=== PATIENT | female | born 1970 | race African-American/Black ===

== ENCOUNTER 2016-08-02 13:24 | Inpatient (IN) | payer MEDICAID ==
[~2016-08-02] VITALS: Ht 167.6 cm; Wt 72.7 kg
[2016-08-02] MEDS ORDERED: LEVETIRACETAM 500MG PREMIX 100 ML IV ONE (13:45)
[2016-08-02 14:15] LABS: BASOPHILS % 0.6 % (0.0-2.0); HEMATOCRIT. 34.3 % (36.0-48.0); HEMOGLOBIN. 11.1 g/dL (12.0-16.0); LYMPHOCYTES % 8.9 % (20.0-50.0); MEAN CORPUSCULAR HEMOGLOBIN 29.5 pg (28.0-32.0); MEAN CORPUSCULAR HGB CONC 32.2 g/dL (31.0-37.0); MEAN CORPUSCULAR VOLUME 91.7 fL (81.0-99.0); MONOCYTES % 5.5 % (2.0-8.0); PLATELET 213 x1000/uL (130-400); RED BLOOD CELL COUNT 3.74 mill/uL (4.2-5.4); RED CELL DISTRIBUTION WIDTH 14.4 % (11.6-14.6); WHITE BLOOD COUNT 12.4 x1000/uL (4.5-11.0)
[2016-08-02 14:22] LABS: CHLORIDE 107 mEq/L (98-107); INDEX HEMOLYSI 1 (1-3); INDEX ICTERIC 1 (1-4); INDEX LIPEMIC 1 (1-3)
[2016-08-02 14:27] LABS: HCG SCREEN NEGATIVE
[2016-08-02 14:30] LABS: ALANINE AMINOTRANSFERASE 17 IU/L (13-61); ALBUMIN 3.6 g/dL (3.4-5.0); ANION GAP 14; CALCIUM 9.8 mg/dL (8.5-10.1); CARBON DIOXIDE 24 mEq/L (21-32); ETHANOL BLOOD < 10 mg/dL; UREA NITROGEN BLOOD 16 mg/dL (7-21); eGFR > 60 mL/min (>60)
[2016-08-02 20:00] VITALS: BP 122/86
[2016-08-02 20:39] VITALS: BP 122/86
[2016-08-02] MEDS ORDERED: LEVE1000 PO (20:39)
[2016-08-02] MEDS ORDERED: NA PHOS,M-B/NA PHOS,DI-BA ENEMA 118ML PR PRN (21:15)
[2016-08-02] MEDS ORDERED: DOCUSATE SODIUM 100MG CAPSULE PO PRN (21:15)
[2016-08-02] MEDS ORDERED: IPRATROPIUM/ALBUTEROL 0.5-3(2.5)MG/3ML NEB INH PRN (21:15)
[2016-08-02] MEDS ORDERED: DIPHENHYDRAMINE 50MG/ML VIAL IV PRN (21:15)
[2016-08-02] MEDS ORDERED: CLONIDINE 0.1MG TABLET PO PRN (21:15)
[2016-08-02] MEDS ORDERED: GUAIFENESIN 200MG/10ML SUGAR FREE UDC PO PRN (21:15)
[2016-08-02] MEDS ORDERED: ACETAMINOPHEN 650MG SUPP PR PRN (21:15)
[2016-08-02] MEDS ORDERED: DEXTROSE 50% WATER 50ML SYRINGE IV PRN (21:15)
[2016-08-02] MEDS ORDERED: HYDROCODONE/ACETAMINOPHEN 5/325MG TABLET PO PRN (21:15)
[2016-08-02] MEDS ORDERED: ACETAMINOPHEN 650MG/20.3ML UDC GT PRN (21:15)
[2016-08-02] MEDS ORDERED: MAGNESIUM/ALUMINUM HYDROXIDE/SIMETHICONE 30ML UDC PO PRN (21:15)
[2016-08-02] MEDS ORDERED: ONDANSETRON HCL 4MG/2ML VIAL IV PRN (21:15)
[2016-08-03] VITALS: BP 109/68
[2016-08-03 04:00] VITALS: BP 116/81
[2016-08-03] MEDS: SODIUM CHLORIDE 0.9% INJ 3ML FLUSH IVF SCH ×3 (05:22→22:08)
[2016-08-03 05:38] LABS: BASOPHILS % 0.4 % (0.0-2.0); HEMATOCRIT. 33.6 % (36.0-48.0); LYMPHOCYTES % 17.5 % (20.0-50.0); MEAN CORPUSCULAR HEMOGLOBIN 29.5 pg (28.0-32.0); MEAN CORPUSCULAR HGB CONC 32.6 g/dL (31.0-37.0); MEAN CORPUSCULAR VOLUME 90.6 fL (81.0-99.0); MEAN PLATELET VOLUME 8.2 fl (7.4-10.4); MONOCYTES % 10.2 % (2.0-8.0); NEUTROPHILS % 71.9 % (40.0-76.0); PLATELET 217 x1000/uL (130-400); RED BLOOD CELL COUNT 3.71 mill/uL (4.2-5.4); RED CELL DISTRIBUTION WIDTH 14.4 % (11.6-14.6); WHITE BLOOD COUNT 9.4 x1000/uL (4.5-11.0)
[2016-08-03 06:05] LABS: ALANINE AMINOTRANSFERASE 17 IU/L (13-61); ALBUMIN 3.2 g/dL (3.4-5.0); ANION GAP 11; CALCIUM 9.5 mg/dL (8.5-10.1); CARBON DIOXIDE 27 mEq/L (21-32); CHLORIDE 107 mEq/L (98-107); INDEX HEMOLYSI 1 (1-3); INDEX ICTERIC 1 (1-4); INDEX LIPEMIC 1 (1-3); TRIGLYCERIDE 62 mg/dL (0-150); UREA NITROGEN BLOOD 11 mg/dL (7-21); eGFR > 60 mL/min (>60)
[2016-08-03 06:09] LABS: HDL CHOLESTEROL 51 mg/dL (40-59); LDL CHOLESTEROL 110 mg/dL (5-100)
[2016-08-03] MEDS: BLOOD SUGAR DIAGNOSTIC STRIP TEST SCH ×4 (06:16→21:00)
[2016-08-03] MEDS: INSULIN LISPRO 100 UNITS/ML SUBCUT SCH ×4 (06:16→21:00)
[2016-08-03 08:00] VITALS: BP 122/78
[2016-08-03] MEDS: ENOXAPARIN 40MG/0.4ML SYR SUBCUT SCH (09:43)
[2016-08-03 12:00] VITALS: BP 135/101
[2016-08-03] MEDS ORDERED: PNEUMOCOCCAL 23-VAL P-SAC VAC 0.5 ML IM ONE (12:00)
[2016-08-03] MEDS ORDERED: INFLUENZA VIRUS VACCINE 0.5ML SYR IM ONE (12:00)
[2016-08-03 15:47] LABS: CLARITY URINE CLEAR (CLEAR); COLOR URINE YELLOW (YELLOW); GLUCOSE URINE NEGATIVE (NEGATIVE); KETONES URINE NEGATIVE (NEGATIVE); LEUKOCYTE ESTERASE URINE 1+ (NEGATIVE); NITRITE URINE NEGATIVE (NEGATIVE); OCCULT BLOOD URINE NEGATIVE (NEGATIVE); PH URINE 6.5 (4.5-8.0); PROTEIN URINE NEGATIVE (NEGATIVE); SPECIFIC GRAVITY URINE 1.007 (1.005-1.030); UROBILINOGEN URINE 0.2 E.U./dL (0.2-1.0)
[2016-08-03 16:00] VITALS: BP 118/79
[2016-08-03 16:09] LABS: *AMPHETAMINES SCREEN URINE NEGATIVE (NEGATIVE); *BARBITURATES SCREEN URINE NEGATIVE (NEGATIVE); *BENZODIAZEPINES SCREEN URINE NEGATIVE (NEGATIVE); *COCAINE SCREEN URINE NEGATIVE (NEGATIVE); ECSTASY MDMA SCREEN URINE NEGATIVE (NEGATIVE); METHADONE URINE SCREEN NEGATIVE (NEGATIVE); OPIATES URINE SCREEN NEGATIVE (NEGATIVE); PHENCYCLIDINE URINE SCREEN NEGATIVE (NEGATIVE)
[2016-08-03 16:13] LABS: CANNABINOID URINE SCREEN PRESUMTIVE POSITIVE (NEGATIVE)
[2016-08-03 16:25] LABS: BACTERIA URINE TRACE; RBC URINE 0-2 /hpf (0-2); SQUAMOUS EPITHELIAL CELL URINE FEW /lpf (RARE/1+)
[2016-08-03 20:00] VITALS: BP 127/87
[2016-08-04] VITALS: BP 108/65
[2016-08-04 04:00] VITALS: BP 133/89
[2016-08-04] MEDS: BLOOD SUGAR DIAGNOSTIC STRIP TEST SCH ×4 (06:37→21:24)
[2016-08-04] MEDS: INSULIN LISPRO 100 UNITS/ML SUBCUT SCH ×4 (06:37→21:00)
[2016-08-04] MEDS: SODIUM CHLORIDE 0.9% INJ 3ML FLUSH IVF SCH ×3 (06:37→21:24)
[2016-08-04] MEDS: ACETAMINOPHEN 325MG TABLET PO PRN (06:43)
[2016-08-04 08:00] VITALS: BP 116/74
[2016-08-04] MEDS: ENOXAPARIN 40MG/0.4ML SYR SUBCUT SCH (09:12)
[2016-08-04] MEDS ORDERED: LEVOFLOXACIN 500MG TABLET PO NR (11:30)
[2016-08-04] MEDS ORDERED: LEVETIRACETAM 500MG TABLET PO SCH ×2 (11:30→12:45)
[2016-08-04 12:00] VITALS: BP 129/89
[2016-08-04] MEDS ORDERED: LEVO500T15 PO (12:37)
[2016-08-04 16:00] VITALS: BP 115/75
[2016-08-04 17:59] LABS: BASOPHILS % 0.6 % (0.0-2.0); EOSINOPHILS % 0.4 % (0.0-5.0); HEMATOCRIT. 35.2 % (36.0-48.0); HEMOGLOBIN. 11.6 g/dL (12.0-16.0); LYMPHOCYTES % 21.4 % (20.0-50.0); MEAN CORPUSCULAR HEMOGLOBIN 30.1 pg (28.0-32.0); MEAN CORPUSCULAR HGB CONC 33.1 g/dL (31.0-37.0); MEAN PLATELET VOLUME 8.6 fl (7.4-10.4); MONOCYTES % 12.4 % (2.0-8.0); NEUTROPHILS % 65.2 % (40.0-76.0); PLATELET 209 x1000/uL (130-400); RED BLOOD CELL COUNT 3.86 mill/uL (4.2-5.4); RED CELL DISTRIBUTION WIDTH 14.1 % (11.6-14.6); WHITE BLOOD COUNT 9.3 x1000/uL (4.5-11.0)
[2016-08-04 18:24] LABS: ANION GAP 14; CALCIUM 9.1 mg/dL (8.5-10.1); CARBON DIOXIDE 27 mEq/L (21-32); CHLORIDE 105 mEq/L (98-107); INDEX HEMOLYSI 1 (1-3); INDEX ICTERIC 1 (1-4); INDEX LIPEMIC 1 (1-3); UREA NITROGEN BLOOD 13 mg/dL (7-21); eGFR > 60 mL/min (>60)
[2016-08-04] MEDS ORDERED: LEVE1000 PO (19:49)
[2016-08-04 20:00] VITALS: BP 110/71
[2016-08-04] MEDS: LEVETIRACETAM 500MG TABLET PO SCH (21:24)
[2016-08-05] VITALS: BP 102/69
[2016-08-05 04:00] VITALS: BP 116/75
[2016-08-05] MEDS: INSULIN LISPRO 100 UNITS/ML SUBCUT SCH ×4 (05:58→21:00)
[2016-08-05] MEDS: SODIUM CHLORIDE 0.9% INJ 3ML FLUSH IVF SCH ×3 (05:58→21:43)
[2016-08-05] MEDS: BLOOD SUGAR DIAGNOSTIC STRIP TEST SCH ×5 (05:58→21:44)
[2016-08-05 08:00] VITALS: BP 109/67
[2016-08-05] MEDS: ENOXAPARIN 40MG/0.4ML SYR SUBCUT SCH (09:00)
[2016-08-05] MEDS: LEVETIRACETAM 500MG TABLET PO SCH ×2 (10:03→21:43)
[2016-08-05 12:00] VITALS: BP 107/64
[2016-08-05 16:00] VITALS: BP 99/73
[2016-08-05 20:00] VITALS: BP 106/62
[2016-08-06] VITALS (7 sets, daily range): BP systolic 99–139; BP diastolic 61–88
[2016-08-06] MEDS: SODIUM CHLORIDE 0.9% INJ 3ML FLUSH IVF SCH ×3 (06:18→21:04)
[2016-08-06] MEDS: BLOOD SUGAR DIAGNOSTIC STRIP TEST SCH ×4 (06:21→21:04)
[2016-08-06] MEDS: INSULIN LISPRO 100 UNITS/ML SUBCUT SCH ×4 (07:50→21:00)
[2016-08-06] MEDS: LEVETIRACETAM 500MG TABLET PO SCH ×2 (08:36→20:54)
[2016-08-06] MEDS: ENOXAPARIN 40MG/0.4ML SYR SUBCUT SCH (08:37)
[2016-08-07 05:11] VITALS: BP 107/74
[2016-08-07] MEDS: SODIUM CHLORIDE 0.9% INJ 3ML FLUSH IVF SCH ×3 (06:56→22:09)
[2016-08-07] MEDS: BLOOD SUGAR DIAGNOSTIC STRIP TEST SCH ×4 (06:57→21:00)
[2016-08-07] MEDS: INSULIN LISPRO 100 UNITS/ML SUBCUT SCH ×4 (07:50→21:00)
[2016-08-07 08:00] VITALS: BP 105/67
[2016-08-07] MEDS: LEVETIRACETAM 500MG TABLET PO SCH ×2 (09:17→22:08)
[2016-08-07] MEDS: ENOXAPARIN 40MG/0.4ML SYR SUBCUT SCH (09:17)
[2016-08-07 12:00] VITALS: BP 123/89
[2016-08-07 16:00] VITALS: BP 105/60
[2016-08-07 20:08] VITALS: BP 101/68
[2016-08-08 00:02] VITALS: BP 112/70
[2016-08-08 05:27] VITALS: BP 111/76
[2016-08-08] MEDS: BLOOD SUGAR DIAGNOSTIC STRIP TEST SCH ×4 (06:49→21:00)
[2016-08-08] MEDS: SODIUM CHLORIDE 0.9% INJ 3ML FLUSH IVF SCH ×3 (06:53→22:19)
[2016-08-08] MEDS: INSULIN LISPRO 100 UNITS/ML SUBCUT SCH ×4 (06:56→21:00)
[2016-08-08 08:00] VITALS: BP 106/74
[2016-08-08] MEDS: ENOXAPARIN 40MG/0.4ML SYR SUBCUT SCH (09:09)
[2016-08-08] MEDS: LEVETIRACETAM 500MG TABLET PO SCH ×2 (09:09→22:18)
[2016-08-08 12:00] VITALS: BP 102/44
[2016-08-08 16:00] VITALS: BP 94/56
[2016-08-08 20:00] VITALS: BP 121/82
[2016-08-08] MEDS: BACLOFEN 10MG TABLET PO SCH (22:19)
[2016-08-09] VITALS: BP 110/75
[2016-08-09 04:00] VITALS: BP 134/95
[2016-08-09] MEDS: BACLOFEN 10MG TABLET PO SCH ×3 (05:19→22:02)
[2016-08-09] MEDS: SODIUM CHLORIDE 0.9% INJ 3ML FLUSH IVF SCH ×3 (05:19→22:03)
[2016-08-09 08:00] VITALS: BP 107/79
[2016-08-09] MEDS: LEVETIRACETAM 500MG TABLET PO SCH ×2 (09:20→22:01)
[2016-08-09] MEDS: ENOXAPARIN 40MG/0.4ML SYR SUBCUT SCH (09:28)
[2016-08-09 12:00] VITALS: BP 99/68
[2016-08-09] MEDS: INSULIN LISPRO 100 UNITS/ML SUBCUT SCH ×3 (12:08→22:05)
[2016-08-09] MEDS: BLOOD SUGAR DIAGNOSTIC STRIP TEST SCH ×3 (12:08→22:05)
[2016-08-09 16:00] VITALS: BP 108/66
[2016-08-09 20:00] VITALS: BP 115/75
[2016-08-10 04:00] VITALS: BP 121/70
[2016-08-10] MEDS: BACLOFEN 10MG TABLET PO SCH ×2 (07:07→14:00)
[2016-08-10] MEDS: SODIUM CHLORIDE 0.9% INJ 3ML FLUSH IVF SCH ×2 (07:07→14:43)
[2016-08-10] MEDS: BLOOD SUGAR DIAGNOSTIC STRIP TEST SCH ×3 (07:10→17:20)
[2016-08-10] MEDS: INSULIN LISPRO 100 UNITS/ML SUBCUT SCH ×3 (07:50→17:50)
[2016-08-10 08:00] VITALS: BP 91/59
[2016-08-10] MEDS: ENOXAPARIN 40MG/0.4ML SYR SUBCUT SCH (09:34)
[2016-08-10] MEDS: LEVETIRACETAM 500MG TABLET PO SCH (09:34)
[2016-08-10] MEDS: ACETAMINOPHEN 325MG TABLET PO PRN (09:41)
[2016-08-10 12:00] VITALS: BP 94/67
[2016-08-10 16:00] VITALS: BP 100/68
[2016-08-10 20:00] VITALS: BP 102/66
[2016-08-10 20:34] VITALS: BP 110/70
== END 2016-08-10 19:30 | DRG 53 ==
LOC: ER 13:28 → 5WST 16:28 → 6EST 08-05 11:50
PROVIDERS: ADMIT Family Medicine; ATTEND Family Medicine
DX: G40.919 Epilepsy, unspecified, intractable, without status epilepticus (principal); G93.41 Metabolic encephalopathy; R53.2 Functional quadriplegia; R73.9 Hyperglycemia, unspecified; Z74.01 Bed confinement status; D63.8 Anemia in other chronic diseases classified elsewhere; Z87.820 Personal history of traumatic brain injury; Z88.2 Allergy status to sulfonamides; Z79.899 Other long term (current) drug therapy; Z98.1 Arthrodesis status
CPT/HCPCS: 36415; 70450; 70551; 71010; 72170; 80048; 80053; 80061; 80305; 81001; 82962; 83036; 84703; 85025; 90686; 90732; 93005; 95816; 97110; 97163; 97530; 99285; G0482; J1650; J1953

== ENCOUNTER 2018-06-13 02:03 | Inpatient (IN) | payer MEDICAID ==
[~2018-06-13] VITALS: Ht 162.6 cm; Wt 74.6 kg
[~2018-06-13 02:03] MED LIST: LEVE1000 PO; LEVO500T2 PO
[2018-06-13] MEDS ORDERED: SODIUM CHLORIDE 0.9% 1,000 ML IV ONE (02:17)
[2018-06-13] MEDS ORDERED: LEVETIRACETAM 1000MG/100ML 100 ML IV ONE (02:30)
[2018-06-13 03:10] LABS: BASOPHILS % 0.9 % (0.0-2.0); EOSINOPHILS % 0.7 % (0.0-5.0); HEMATOCRIT. 33.7 % (36.0-48.0); HEMOGLOBIN. 10.7 g/dL (12.0-16.0); LYMPHOCYTES % 11.9 % (20.0-50.0); MEAN CORPUSCULAR HEMOGLOBIN 27.5 pg (28.0-32.0); MEAN CORPUSCULAR VOLUME 86.8 fL (81.0-99.0); MEAN PLATELET VOLUME 8.4 fl (7.4-10.4); MONOCYTES % 4.9 % (2.0-8.0); NEUTROPHILS % 81.6 % (40.0-76.0); PLATELET 294 x1000/uL (130-400); RED BLOOD CELL COUNT 3.88 mill/uL (4.2-5.4); RED CELL DISTRIBUTION WIDTH 15.9 % (11.6-14.6)
[2018-06-13 03:11] LABS: CHLORIDE 106 mEq/L (98-107)
[2018-06-13 03:16] LABS: ETHANOL BLOOD < 10 mg/dL
[2018-06-13 05:00] LABS: HCG SCREEN NEGATIVE
[2018-06-13 10:00] VITALS: BP 120/77
[2018-06-13] MEDS ORDERED: LEVETIRACETAM 750 MG in SODIUM CHLORIDE 0.9% 100 ML IV SCH (10:15)
[2018-06-13] MEDS ORDERED: CLONIDINE 0.1MG TABLET PO PRN (11:00)
[2018-06-13] MEDS ORDERED: IPRATROPIUM/ALBUTEROL 0.5-3(2.5)MG/3ML NEB INH PRN (11:00)
[2018-06-13] MEDS ORDERED: ACETAMINOPHEN 325MG TABLET PO PRN (11:00)
[2018-06-13] MEDS ORDERED: ONDANSETRON HCL 4MG/2ML INJ IV PRN (11:00)
[2018-06-13 12:00] VITALS: BP 130/82
[2018-06-13] MEDS: FOLIC ACID 1MG TABLET PO SCH (12:00)
[2018-06-13] MEDS: MULTIVITAMINS,THER W-MINERALS TABLET PO SCH (12:00)
[2018-06-13] MEDS: THIAMINE HCL 100MG TABLET PO SCH (12:00)
[2018-06-13] MEDS ORDERED: POTASSIUM CHLORIDE INJ 40 MEQ in DEXT 5% WATER 250 ML IV SCH (13:00)
[2018-06-13 14:00] VITALS: BP 121/75
[2018-06-13] MEDS ORDERED: DEXTROSE 50% WATER 50ML SYRINGE IV PRN (14:15)
[2018-06-13] MEDS: LEVETIRACETAM 750 MG in SODIUM CHLORIDE 0.9% 100 ML IV SCH ×2 (14:22→23:01)
[2018-06-13] MEDS: ENOXAPARIN 40MG/0.4ML SYR SUBCUT SCH (14:22)
[2018-06-13] MEDS: DEXT 5%/0.45% NACL 1000ML 1,000 ML IV SCH ×2 (14:23→22:25)
[2018-06-13 16:01] VITALS: BP 113/78
[2018-06-13 16:37] VITALS: BP 116/70
[2018-06-13] MEDS: BLOOD SUGAR DIAGNOSTIC STRIP TEST SCH ×2 (17:34→21:59)
[2018-06-13] MEDS: INSULIN LISPRO 100 UNITS/ML SUBCUT SCH ×2 (17:35→21:59)
[2018-06-14] VITALS (13 sets, daily range): BP systolic 122–144; BP diastolic 65–95
[2018-06-14] MEDS: BLOOD SUGAR DIAGNOSTIC STRIP TEST SCH ×4 (06:40→20:31)
[2018-06-14 07:31] LABS: BASOPHILS % 0.9 % (0.0-2.0); EOSINOPHILS % 0.8 % (0.0-5.0); HEMATOCRIT. 31.3 % (36.0-48.0); HEMOGLOBIN. 10.1 g/dL (12.0-16.0); LYMPHOCYTES % 27.6 % (20.0-50.0); MEAN CORPUSCULAR VOLUME 86.5 fL (81.0-99.0); MEAN PLATELET VOLUME 8.6 fl (7.4-10.4); MONOCYTES % 10.3 % (2.0-8.0); NEUTROPHILS % 60.4 % (40.0-76.0); PLATELET 270 x1000/uL (130-400); RED BLOOD CELL COUNT 3.62 mill/uL (4.2-5.4)
[2018-06-14 07:43] LABS: CHLORIDE 110 mEq/L (98-107)
[2018-06-14] MEDS: INSULIN LISPRO 100 UNITS/ML SUBCUT SCH ×4 (07:48→20:40)
[2018-06-14] MEDS: DEXT 5%/0.45% NACL 1000ML 1,000 ML IV SCH (08:00)
[2018-06-14] MEDS: ENOXAPARIN 40MG/0.4ML SYR SUBCUT SCH ×2 (09:00→09:40)
[2018-06-14] MEDS: LEVETIRACETAM 750 MG in SODIUM CHLORIDE 0.9% 100 ML IV SCH ×2 (09:41→20:31)
[2018-06-14] MEDS: MULTIVITAMINS,THER W-MINERALS TABLET PO SCH (09:43)
[2018-06-14] MEDS: THIAMINE HCL 100MG TABLET PO SCH (09:43)
[2018-06-14] MEDS: FOLIC ACID 1MG TABLET PO SCH (09:43)
[2018-06-14 09:46] LABS: CLARITY URINE CLOUDY (CLEAR); COLOR URINE YELLOW (YELLOW); KETONES URINE NEGATIVE (NEGATIVE); LEUKOCYTE ESTERASE URINE 1+ (NEGATIVE); NITRITE URINE NEGATIVE (NEGATIVE); OCCULT BLOOD URINE 2+ (NEGATIVE); PROTEIN URINE NEGATIVE (NEGATIVE); SPECIFIC GRAVITY URINE 1.011 (1.005-1.030)
[2018-06-14 09:59] LABS: *BARBITURATES SCREEN URINE NEGATIVE (NEGATIVE); *COCAINE SCREEN URINE NEGATIVE (NEGATIVE)
[2018-06-14 10:00] LABS: *AMPHETAMINES SCREEN URINE NEGATIVE (NEGATIVE); METHADONE URINE SCREEN NEGATIVE (NEGATIVE); OPIATES URINE SCREEN NEGATIVE (NEGATIVE); PHENCYCLIDINE URINE SCREEN NEGATIVE (NEGATIVE)
[2018-06-14 10:04] LABS: *BENZODIAZEPINES SCREEN URINE PRESUMTIVE POSITIVE (NEGATIVE); CANNABINOID URINE SCREEN PRESUMTIVE POSITIVE (NEGATIVE)
== END 2018-06-14 22:00 | disposition home or self-care (01) | DRG 53 ==
LOC: ER 02:56 → 5EST 06:00 → EDBEDREQ 06:08 → EDBEDREQSVC 06:08 → EDBEDREQTM 06:08 → ENRESERV 08:16
PROVIDERS: ADMIT Internal Medicine; ATTEND Internal Medicine
DX: G40.901 Epilepsy, unspecified, not intractable, with status epilepticus (principal); E44.1 Mild protein-calorie malnutrition; D64.9 Anemia, unspecified; M24.541 Contracture, right hand; Z87.820 Personal history of traumatic brain injury; Z91.19 Patient's noncompliance with other medical treatment and regimen; Z97.0 Presence of artificial eye; Z88.2 Allergy status to sulfonamides
CPT/HCPCS: 36415; 70551; 80048; 80305; 82962; 84703; 99285; J1650; J1953; J3480; J7030; J7050; J7060; A4315

== ENCOUNTER 2018-09-24 10:12 | Inpatient (IN) | payer MEDICAID ==
[~2018-09-24] VITALS: Ht 182.9 cm; Wt 70.3 kg
[2018-09-24] MEDS ORDERED: SODIUM CHLORIDE 0.9% 1,000 ML IV ONE (10:43)
[2018-09-24] MEDS ORDERED: LEVETIRACETAM 1000MG/100ML 100 ML IV ONE (10:45)
[2018-09-24 11:14] LABS: BASOPHILS % 0.9 % (0.0-2.0); EOSINOPHILS % 0.4 % (0.0-5.0); HEMOGLOBIN. 12.4 g/dL (12.0-16.0); LYMPHOCYTES % 10.5 % (20.0-50.0); MEAN CORPUSCULAR VOLUME 88.8 fL (81.0-99.0); NEUTROPHILS % 86.2 % (40.0-76.0); PLATELET 288 x1000/uL (130-400); RED BLOOD CELL COUNT 4.28 mill/uL (4.2-5.4); RED CELL DISTRIBUTION WIDTH 16.8 % (11.6-14.6)
[2018-09-24 11:19] LABS: CHLORIDE 109 mEq/L (98-107)
[2018-09-24 11:22] LABS: PARTIAL THROMBOPLASTIN TIME 23.5 sec (23.4-31.0); PROTHROMBIN TIME 10.1 sec (9.6-11.0)
[2018-09-24 11:28] LABS: HCG SCREEN NEGATIVE
[2018-09-24 22:49] VITALS: BP 131/78
[2018-09-25] VITALS (7 sets, daily range): BP systolic 115–136; BP diastolic 69–84
[2018-09-25] MEDS ORDERED: ACETAMINOPHEN 325MG TABLET PO PRN (02:15)
[2018-09-25] MEDS ORDERED: LORAZEPAM 2MG/ML CPJ IV PRN (02:15)
[2018-09-25] MEDS ORDERED: ONDANSETRON HCL 4MG/2ML INJ IV PRN (02:15)
[2018-09-25 06:16] LABS: BASOPHILS % 0.7 % (0.0-2.0); EOSINOPHILS % 0.2 % (0.0-5.0); HEMATOCRIT. 33.9 % (36.0-48.0); HEMOGLOBIN. 10.9 g/dL (12.0-16.0); LYMPHOCYTES % 21.3 % (20.0-50.0); MEAN CORPUSCULAR HEMOGLOBIN 28.5 pg (28.0-32.0); MEAN CORPUSCULAR VOLUME 88.9 fL (81.0-99.0); MEAN PLATELET VOLUME 8.3 fl (7.4-10.4); MONOCYTES % 10.3 % (2.0-8.0); NEUTROPHILS % 67.5 % (40.0-76.0); PLATELET 257 x1000/uL (130-400); RED BLOOD CELL COUNT 3.82 mill/uL (4.2-5.4); RED CELL DISTRIBUTION WIDTH 16.8 % (11.6-14.6)
[2018-09-25 06:20] LABS: CHLORIDE 110 mEq/L (98-107)
[2018-09-25] MEDS: ENOXAPARIN 40MG/0.4ML SYR SUBCUT SCH (08:37)
[2018-09-25] MEDS: LEVETIRACETAM 500MG TABLET PO SCH ×2 (08:37→21:47)
[2018-09-25] MEDS ORDERED: POTASSIUM CHLORIDE 20MEQ TABLET SR PO NR (23:30)
[2018-09-26] VITALS (7 sets, daily range): BP systolic 110–148; BP diastolic 59–83
[2018-09-26 06:14] LABS: BASOPHILS % 1.3 % (0.0-2.0); EOSINOPHILS % 1.5 % (0.0-5.0); HEMATOCRIT. 32.1 % (36.0-48.0); HEMOGLOBIN. 10.6 g/dL (12.0-16.0); LYMPHOCYTES % 30.2 % (20.0-50.0); MEAN CORPUSCULAR HEMOGLOBIN 29.4 pg (28.0-32.0); MEAN CORPUSCULAR VOLUME 89.1 fL (81.0-99.0); MEAN PLATELET VOLUME 8.2 fl (7.4-10.4); MONOCYTES % 11.5 % (2.0-8.0); NEUTROPHILS % 55.5 % (40.0-76.0); PLATELET 247 x1000/uL (130-400); RED BLOOD CELL COUNT 3.61 mill/uL (4.2-5.4)
[2018-09-26 07:53] LABS: CHLORIDE 109 mEq/L (98-107)
[2018-09-26] MEDS ORDERED: LEVETIRACETAM 500MG TABLET PO SCH (09:00)
[2018-09-26] MEDS: ENOXAPARIN 40MG/0.4ML SYR SUBCUT SCH (09:21)
[2018-09-27] VITALS: BP 141/68
[2018-09-27 04:00] VITALS: BP 136/74
[2018-09-27 08:00] VITALS: BP 127/73
[2018-09-27] MEDS: ENOXAPARIN 40MG/0.4ML SYR SUBCUT SCH ×2 (09:00→10:38)
[2018-09-27 12:00] VITALS: BP 129/81
[2018-09-27 12:07] VITALS: BP 129/81
== END 2018-09-27 15:50 | disposition home or self-care (01) | DRG 53 ==
LOC: ER 10:12 → 5WST 16:33 → EDBEDREQTM 16:35 → EDBEDREQ 16:35 → CANRESERV 16:49 → ENRESERV 19:27 → 5WST 09-25 05:55 → 7WST 09-25 16:41
PROVIDERS: ADMIT Internal Medicine; ATTEND Internal Medicine
PROC: 4A00X4Z Measurement of Central Nervous Electrical Activity, External Approach (ICD-10-PCS; principal; 2018-09-26)
DX: G40.909 Epilepsy, unspecified, not intractable, without status epilepticus (principal); E87.8 Other disorders of electrolyte and fluid balance, not elsewhere classified; G93.89 Other specified disorders of brain; D64.9 Anemia, unspecified; M24.541 Contracture, right hand; M21.951 Unspecified acquired deformity of right thigh; Z86.73 Personal history of transient ischemic attack (TIA), and cerebral infarction without residual deficits; Z97.0 Presence of artificial eye; Z88.2 Allergy status to sulfonamides; Z79.899 Other long term (current) drug therapy
CPT/HCPCS: 36415; 70551; 71045; 73521; 73560; 80048; 82542; 82962; 83880; 84484; 84703; 93005; 96374; 99285; A6261; J1650; J1953; J7030; A4315

== ENCOUNTER 2018-11-28 10:26 | Emergency (ER) | payer MEDICAID ==
[~2018-11-28] VITALS: Ht 175.3 cm; Wt 82.0 kg
[2018-11-28] MEDS ORDERED: LEVETIRACETAM 1000MG/100ML 100 ML IV ONE (10:45)
[2018-11-28] MEDS ORDERED: LORAZEPAM 2MG/ML CPJ ONE (11:10)
[2018-11-28 11:12] LABS: BASOPHILS % 1.4 % (0.0-2.0); EOSINOPHILS % 1.3 % (0.0-5.0); HEMATOCRIT. 38.8 % (36.0-48.0); HEMOGLOBIN. 12.6 g/dL (12.0-16.0); LYMPHOCYTES % 46.4 % (20.0-50.0); MEAN CORPUSCULAR HEMOGLOBIN 28.9 pg (28.0-32.0); MEAN CORPUSCULAR VOLUME 88.9 fL (81.0-99.0); MEAN PLATELET VOLUME 8.4 fl (7.4-10.4); MONOCYTES % 7.8 % (2.0-8.0); NEUTROPHILS % 43.1 % (40.0-76.0); PLATELET 276 x1000/uL (130-400); RED BLOOD CELL COUNT 4.37 mill/uL (4.2-5.4); RED CELL DISTRIBUTION WIDTH 15.9 % (11.6-14.6)
[2018-11-28 11:19] LABS: CHLORIDE 106 mEq/L (98-107)
[2018-11-28 11:27] LABS: ETHANOL BLOOD < 10 mg/dL; HCG SCREEN NEGATIVE
[2018-11-28] MEDS ORDERED: LORAZEPAM 2MG/ML CPJ IM PRN (11:45)
[2018-11-28 17:25] VITALS: BP 110/81
== END 2018-11-28 17:45 | disposition home or self-care (01) ==
LOC: ER 10:26
DX: R56.9 Unspecified convulsions (principal); Z86.73 Personal history of transient ischemic attack (TIA), and cerebral infarction without residual deficits; Z88.2 Allergy status to sulfonamides
CPT/HCPCS: 36415; 80053; 80320; 84703; 85025; 93005; 96365; 99284; J1953; J2060; G0480

== ENCOUNTER 2018-12-24 01:21 | Emergency (ER) | payer MEDICAID ==
[~2018-12-24] VITALS: Ht 167.6 cm; Wt 72.0 kg
[2018-12-24] MEDS ORDERED: LEVETIRACETAM 500MG PREMIX 100 ML IV ONE (02:15)
[2018-12-24 02:35] LABS: CHLORIDE 107 mEq/L (98-107)
[2018-12-24 02:55] LABS: BASOPHILS % 1.3 % (0.0-2.0); EOSINOPHILS % 0.2 % (0.0-5.0); HEMATOCRIT. 37.1 % (36.0-48.0); HEMOGLOBIN. 12.1 g/dL (12.0-16.0); LYMPHOCYTES % 15.9 % (20.0-50.0); MEAN CORPUSCULAR HEMOGLOBIN 28.7 pg (28.0-32.0); MEAN CORPUSCULAR VOLUME 87.6 fL (81.0-99.0); MONOCYTES % 3.3 % (2.0-8.0); NEUTROPHILS % 79.3 % (40.0-76.0); PLATELET 285 x1000/uL (130-400); RED BLOOD CELL COUNT 4.23 mill/uL (4.2-5.4); RED CELL DISTRIBUTION WIDTH 15.8 % (11.6-14.6)
[2018-12-24 09:29] VITALS: BP 130/82
== END 2018-12-24 09:45 | disposition home or self-care (01) ==
LOC: ER 01:21
DX: G40.909 Epilepsy, unspecified, not intractable, without status epilepticus (principal)
CPT/HCPCS: 36415; 80053; 85025; 96374; 99283; J1953

== ENCOUNTER 2019-02-02 10:11 | Inpatient (IN) | payer MEDICAID ==
[~2019-02-02] VITALS: Ht 350.5 cm; Wt 74.8 kg
[2019-02-02] MEDS ORDERED: SODIUM CHLORIDE 0.9% 1,000 ML IV ONE (11:00)
[2019-02-02] MEDS ORDERED: KETOROLAC 30MG/ML VIAL IV STA (11:00)
[2019-02-02] MEDS ORDERED: LEVETIRACETAM 500MG PREMIX 100 ML IV ONE (11:00)
[2019-02-02] MEDS ORDERED: ONDANSETRON HCL 4MG/2ML INJ IV STA (11:00)
[2019-02-02 11:58] LABS: BASOPHILS % 1.2 % (0.0-2.0); EOSINOPHILS % 0.1 % (0.0-5.0); HEMATOCRIT. 38.4 % (36.0-48.0); HEMOGLOBIN. 12.6 g/dL (12.0-16.0); LYMPHOCYTES % 12.1 % (20.0-50.0); MEAN CORPUSCULAR HEMOGLOBIN 29.1 pg (28.0-32.0); MEAN CORPUSCULAR VOLUME 88.7 fL (81.0-99.0); MEAN PLATELET VOLUME 8.6 fl (7.4-10.4); MONOCYTES % 3.4 % (2.0-8.0); NEUTROPHILS % 83.2 % (40.0-76.0); PLATELET 244 x1000/uL (130-400); RED BLOOD CELL COUNT 4.32 mill/uL (4.2-5.4); RED CELL DISTRIBUTION WIDTH 16.6 % (11.6-14.6)
[2019-02-02 12:06] LABS: CHLORIDE 110 mEq/L (98-107)
[2019-02-02 12:08] LABS: HCG SCREEN NEGATIVE
[2019-02-02] MEDS ORDERED: MORPHINE SULFATE 2 MG/ML CPJ (NOT FOR IM USE) IV ONE (13:00)
[2019-02-02] MEDS ORDERED: LORAZEPAM 2MG/ML CPJ IV ONE (13:00)
[2019-02-02] MEDS ORDERED: SODIUM CHLORIDE 0.9% 2,250 ML IV SCH (14:45)
[2019-02-02] MEDS ORDERED: CEFTRIAXONE 1 G PREMIX 50 ML IV NR (14:45)
[2019-02-02] MEDS ORDERED: SODIUM CHLORIDE 0.9% 1000ML BAG (SEPSIS BOLUS) IV ONE (14:45)
[2019-02-02 16:54] LABS: CLARITY URINE CLEAR (CLEAR); COLOR URINE YELLOW (YELLOW); KETONES URINE 1+ (NEGATIVE); LEUKOCYTE ESTERASE URINE TRACE (NEGATIVE); NITRITE URINE NEGATIVE (NEGATIVE); OCCULT BLOOD URINE 1+ (NEGATIVE); PH URINE 5.5 (4.5-8.0); PROTEIN URINE 1+ (NEGATIVE); SPECIFIC GRAVITY URINE 1.023 (1.005-1.030); UROBILINOGEN URINE 0.2 E.U./dL (0.2-1.0)
[2019-02-02 17:32] LABS: *AMPHETAMINES SCREEN URINE NEGATIVE (NEGATIVE); *BARBITURATES SCREEN URINE NEGATIVE (NEGATIVE); *BENZODIAZEPINES SCREEN URINE NEGATIVE (NEGATIVE)
[2019-02-02 17:33] LABS: *COCAINE SCREEN URINE NEGATIVE (NEGATIVE); METHADONE URINE SCREEN NEGATIVE (NEGATIVE); PHENCYCLIDINE URINE SCREEN NEGATIVE (NEGATIVE)
[2019-02-02 17:36] LABS: CANNABINOID URINE SCREEN PRESUMTIVE POSITIVE (NEGATIVE); OPIATES URINE SCREEN PRESUMTIVE POSITIVE (NEGATIVE)
[2019-02-02] MEDS ORDERED: ONDANSETRON HCL 4MG/2ML INJ IV PRN (19:45)
[2019-02-02] MEDS ORDERED: CLONIDINE 0.1MG TABLET PO PRN (19:45)
[2019-02-02] MEDS ORDERED: HYDROCODONE/ACETAMINOPHEN 5/325MG TABLET PO PRN (19:45)
[2019-02-02] MEDS ORDERED: ACETAMINOPHEN 325MG TABLET PO PRN (19:45)
[2019-02-02] MEDS ORDERED: IPRATROPIUM/ALBUTEROL 0.5-3(2.5)MG/3ML NEB HHN PRN (19:45)
[2019-02-02] MEDS ORDERED: DOCUSATE SODIUM 100MG CAPSULE PO PRN (19:45)
[2019-02-02] MEDS ORDERED: LORAZEPAM 0.5MG TABLET PO PRN (19:45)
[2019-02-02 21:44] VITALS: BP 145/78
[2019-02-02] MEDS: LEVETIRACETAM 500MG/5ML CUP PO SCH (23:02)
[2019-02-03] VITALS (7 sets, daily range): BP systolic 130–136; BP diastolic 60–85
[2019-02-03 08:12] LABS: CHLORIDE 110 mEq/L (98-107)
[2019-02-03] MEDS: LEVETIRACETAM 500MG/5ML CUP PO SCH ×2 (10:03→22:22)
[2019-02-03 10:44] LABS: BASOPHILS % 0.5 % (0.0-2.0); EOSINOPHILS % 0.1 % (0.0-5.0); HEMATOCRIT. 33.7 % (36.0-48.0); HEMOGLOBIN. 11.2 g/dL (12.0-16.0); LYMPHOCYTES % 16.7 % (20.0-50.0); MEAN CORPUSCULAR HEMOGLOBIN 29.6 pg (28.0-32.0); MEAN CORPUSCULAR VOLUME 88.9 fL (81.0-99.0); MEAN PLATELET VOLUME 8.5 fl (7.4-10.4); NEUTROPHILS % 76.7 % (40.0-76.0); RED BLOOD CELL COUNT 3.78 mill/uL (4.2-5.4); RED CELL DISTRIBUTION WIDTH 16.5 % (11.6-14.6)
[2019-02-03] MEDS ORDERED: POTASSIUM CHLORIDE 20MEQ TABLET SR PO NR (10:55)
[2019-02-03 11:00] LABS: PLATELET 208 x1000/uL (130-400)
[2019-02-04 00:40] VITALS: BP 144/78
[2019-02-04 04:00] VITALS: BP 135/84
[2019-02-04 06:24] LABS: CHLORIDE 111 mEq/L (98-107)
[2019-02-04 06:25] LABS: BASOPHILS % 0.7 % (0.0-2.0); EOSINOPHILS % 1.3 % (0.0-5.0); HEMATOCRIT. 33.6 % (36.0-48.0); HEMOGLOBIN. 11.1 g/dL (12.0-16.0); MEAN CORPUSCULAR HEMOGLOBIN 29.4 pg (28.0-32.0); MEAN CORPUSCULAR VOLUME 89.3 fL (81.0-99.0); MEAN PLATELET VOLUME 8.5 fl (7.4-10.4); MONOCYTES % 10.5 % (2.0-8.0); NEUTROPHILS % 62.5 % (40.0-76.0); PLATELET 226 x1000/uL (130-400); RED BLOOD CELL COUNT 3.77 mill/uL (4.2-5.4); RED CELL DISTRIBUTION WIDTH 16.5 % (11.6-14.6)
[2019-02-04 12:00] VITALS: BP 133/79
[2019-02-04 13:02] VITALS: BP 139/94
[2019-02-04] MEDS ORDERED: ZOLPIDEM TARTRATE 5MG TABLET PO PRN (21:00)
== END 2019-02-04 16:33 | disposition home or self-care (01) | DRG 53 ==
LOC: ER 10:11 → EDBEDREQ 11:07 → ENRESERV 20:32 → 6WST 21:33 → UNDODISIN 02-03 06:15
PROVIDERS: ADMIT Internal Medicine; ATTEND Internal Medicine
PROC: 4A00X4Z Measurement of Central Nervous Electrical Activity, External Approach (ICD-10-PCS; principal; 2019-02-03)
DX: G40.409 Other generalized epilepsy and epileptic syndromes, not intractable, without status epilepticus (principal); E87.2 Acidosis; D72.0 Genetic anomalies of leukocytes; F17.210 Nicotine dependence, cigarettes, uncomplicated; F12.90 Cannabis use, unspecified, uncomplicated; Z87.820 Personal history of traumatic brain injury; Z79.899 Other long term (current) drug therapy; Z71.51 Drug abuse counseling and surveillance of drug abuser; Z86.018 Personal history of other benign neoplasm
CPT/HCPCS: 36415; 70551; 71045; 80048; 80305; 81003; 82962; 83605; 84703; 93005; 96365; 99285; J0696; J1885; J1953; J2060; J2270; J2405; J7030; J7620; A4315

== ENCOUNTER 2019-03-05 10:45 | Emergency (ER) | payer MEDICAID ==
[~2019-03-05] VITALS: Ht 170.2 cm; Wt 72.0 kg
[2019-03-05 12:24] LABS: BASOPHILS % 1.1 % (0.0-2.0); EOSINOPHILS % 0.4 % (0.0-5.0); HEMATOCRIT. 39.3 % (36.0-48.0); HEMOGLOBIN. 12.9 g/dL (12.0-16.0); LYMPHOCYTES % 23.7 % (20.0-50.0); MEAN CORPUSCULAR HEMOGLOBIN 29.5 pg (28.0-32.0); MEAN CORPUSCULAR VOLUME 90.2 fL (81.0-99.0); MEAN PLATELET VOLUME 8.1 fl (7.4-10.4); MONOCYTES % 6.9 % (2.0-8.0); NEUTROPHILS % 67.9 % (40.0-76.0); PLATELET 280 x1000/uL (130-400); RED BLOOD CELL COUNT 4.36 mill/uL (4.2-5.4); RED CELL DISTRIBUTION WIDTH 16.9 % (11.6-14.6)
[2019-03-05 12:30] LABS: CHLORIDE 106 mEq/L (98-107)
[2019-03-05 17:45] VITALS: BP 141/83
== END 2019-03-05 17:45 | disposition home or self-care (01) ==
LOC: ER 10:45
DX: G40.909 Epilepsy, unspecified, not intractable, without status epilepticus (principal); S00.512A Abrasion of oral cavity, initial encounter; I69.398 Other sequelae of cerebral infarction; G93.89 Other specified disorders of brain; Z87.820 Personal history of traumatic brain injury; X58.XXXA Exposure to other specified factors, initial encounter; Y93.9 Activity, unspecified; Y92.018 Other place in single-family (private) house as the place of occurrence of the external cause; I10 Essential (primary) hypertension
CPT/HCPCS: 36415; 99284

== ENCOUNTER 2019-09-19 05:34 | Inpatient (IN) | payer MEDICAID ==
[~2019-09-19] VITALS: Ht 172.7 cm; Wt 72.6 kg
[~2019-09-19 05:34] MED LIST changes: +BACL-141 PO; +FURO-151 PO; +KEPP500 PO; -LEVE1000 PO; -LEVO500T2 PO; +OXCA300T4 PO
[2019-09-19] MEDS ORDERED: ACETAMINOPHEN 650MG SUPP PR STA (06:20)
[2019-09-19] MEDS ORDERED: SODIUM CHLORIDE 0.9% 1,000 ML IV ONE (06:20)
[2019-09-19] MEDS ORDERED: LEVETIRACETAM 1000MG/100ML 100 ML IV ONE (06:30)
[2019-09-19] MEDS ORDERED: ACETAMINOPHEN 325MG TABLET PO ONE (07:15)
[2019-09-19 07:33] LABS: BASOPHILS % 0.9 % (0.0-2.0); EOSINOPHILS % 0.2 % (0.0-5.0); HEMATOCRIT. 39.1 % (36.0-48.0); HEMOGLOBIN. 12.8 g/dL (12.0-16.0); LYMPHOCYTES % 18.2 % (20.0-50.0); MEAN CORPUSCULAR HEMOGLOBIN 29.2 pg (28.0-32.0); MEAN CORPUSCULAR VOLUME 88.9 fL (81.0-99.0); MEAN PLATELET VOLUME 8.9 fl (7.4-10.4); MONOCYTES % 3.6 % (2.0-8.0); NEUTROPHILS % 77.1 % (40.0-76.0); PLATELET 269 x1000/uL (130-400); RED CELL DISTRIBUTION WIDTH 16.7 % (11.6-14.6)
[2019-09-19 07:38] LABS: CHLORIDE 108 mEq/L (98-107)
[2019-09-19 07:42] LABS: D-DIMER 1.01 mg/L FEU (<0.50); ETHANOL BLOOD < 10 mg/dL; PROTHROMBIN TIME 10.4 sec (9.6-11.0)
[2019-09-19 07:45] LABS: C REACTIVE PROTEIN QUANT 6.5 mg/L (0.0-3.0)
[2019-09-19 07:47] LABS: CREATINE KINASE 71 IU/L (26-192)
[2019-09-19 07:56] LABS: HCG SCREEN NEGATIVE
[2019-09-19] MEDS ORDERED: ACETAMINOPHEN 325MG TABLET PO PRN (11:45)
[2019-09-19] MEDS ORDERED: LORAZEPAM 2MG/ML CPJ IV PRN (11:45)
[2019-09-19] MEDS ORDERED: CEFTRIAXONE 1 G PREMIX 50 ML IV SCH (18:16)
[2019-09-19] MEDS ORDERED: LEVETIRACETAM 500MG TABLET PO SCH (21:15)
[2019-09-20 07:14] LABS: *AMPHETAMINES SCREEN URINE NEGATIVE (NEGATIVE); *BARBITURATES SCREEN URINE NEGATIVE (NEGATIVE); *BENZODIAZEPINES SCREEN URINE NEGATIVE (NEGATIVE); *COCAINE SCREEN URINE NEGATIVE (NEGATIVE)
[2019-09-20 07:15] LABS: METHADONE URINE SCREEN NEGATIVE (NEGATIVE); OPIATES URINE SCREEN NEGATIVE (NEGATIVE); PHENCYCLIDINE URINE SCREEN NEGATIVE (NEGATIVE)
[2019-09-20 07:18] LABS: CANNABINOID URINE SCREEN PRESUMTIVE POSITIVE (NEGATIVE)
[2019-09-20 08:02] LABS: CLARITY URINE CLEAR (CLEAR); COLOR URINE YELLOW (YELLOW); KETONES URINE 1+ (NEGATIVE); LEUKOCYTE ESTERASE URINE 2+ (NEGATIVE); NITRITE URINE NEGATIVE (NEGATIVE); OCCULT BLOOD URINE NEGATIVE (NEGATIVE); PROTEIN URINE NEGATIVE (NEGATIVE); SPECIFIC GRAVITY URINE 1.013 (1.005-1.030)
[2019-09-20] MEDS ORDERED: LEVETIRACETAM 500MG TABLET PO SCH ×2 (09:00→21:00)
[2019-09-20] MEDS ORDERED: AZITHROMYCIN 500 MG TABLET PO SCH (09:00)
[2019-09-20 12:00] VITALS: BP 115/92
[2019-09-20 12:16] VITALS: BP 112/92
[2019-09-20] MEDS ORDERED: LEVO500T2 MT ×2 (12:33→12:34)
[2019-09-20 16:00] VITALS: BP 119/84
[2019-09-20] MEDS ORDERED: CEFTRIAXONE 1 G PREMIX 50 ML IV SCH ×2 (18:00)
[2019-09-20 20:00] VITALS: BP 142/97
== END 2019-09-20 22:15 | disposition home or self-care (01) | DRG 53 ==
LOC: ER 05:34 → 5WST 07:02 → EDBEDREQTM 07:05 → EDBEDREQ 07:05 → ENRESERV 22:28 → CANRESERV 22:28 → EDBEDREQ 23:12 → ENRESERV 09-20 10:39
PROVIDERS: ADMIT Internal Medicine; ATTEND Internal Medicine
DX: G40.419 Other generalized epilepsy and epileptic syndromes, intractable, without status epilepticus (principal); G82.50 Quadriplegia, unspecified; E87.2 Acidosis; E44.1 Mild protein-calorie malnutrition; E87.8 Other disorders of electrolyte and fluid balance, not elsewhere classified; I50.9 Heart failure, unspecified; E78.5 Hyperlipidemia, unspecified; H54.62 Unqualified visual loss, left eye, normal vision right eye; D72.810 Lymphocytopenia; E87.6 Hypokalemia; F12.90 Cannabis use, unspecified, uncomplicated; I11.0 Hypertensive heart disease with heart failure; Z74.01 Bed confinement status; Z87.820 Personal history of traumatic brain injury; Z97.0 Presence of artificial eye; Z88.2 Allergy status to sulfonamides; Z79.899 Other long term (current) drug therapy; Z03.818 Encounter for observation for suspected exposure to other biological agents ruled out; Z68.24 Body mass index [BMI] 24.0-24.9, adult
CPT/HCPCS: 36415; 71045; 80053; 80305; 80320; 81003; 82550; 82728; 83605; 83615; 83880; 84145; 84484; 84703; 85025; 85379; 85384; 86140; 93005; 99291; J0696; J1953; J7030; U0003; G0480

== ENCOUNTER 2020-04-02 05:22 | Emergency (ER) | payer MEDICAID ==
[~2020-04-02] VITALS: Ht 167.6 cm; Wt 82.0 kg
[~2020-04-02 05:22] MED LIST changes: +LEVO500T2 MT
[2020-04-02] MEDS ORDERED: LORAZEPAM 2MG/ML CPJ IV ONE (06:00)
[2020-04-02 06:20] LABS: BASOPHILS % 0.6 % (0.0-2.0); EOSINOPHILS % 0.8 % (0.0-5.0); HEMATOCRIT. 40.8 % (36.0-48.0); HEMOGLOBIN. 13.2 g/dL (12.0-16.0); LYMPHOCYTES % 18.4 % (20.0-50.0); MEAN CORPUSCULAR HEMOGLOBIN 28.7 pg (28.0-32.0); MEAN CORPUSCULAR VOLUME 88.4 fL (81.0-99.0); MEAN PLATELET VOLUME 8.4 fl (7.4-10.4); MONOCYTES % 5.4 % (2.0-8.0); NEUTROPHILS % 74.8 % (40.0-76.0); PLATELET 293 x1000/uL (130-400); RED BLOOD CELL COUNT 4.61 mill/uL (4.2-5.4); RED CELL DISTRIBUTION WIDTH 15.6 % (11.6-14.6)
[2020-04-02 06:28] LABS: CHLORIDE 108 mEq/L (98-107)
[2020-04-02] MEDS ORDERED: LEVETIRACETAM 500MG PREMIX 100 ML IV ONE (06:30)
[2020-04-02] MEDS ORDERED: ERYTHROMYCIN BASE 0.5% OPHTH OINT 3.5GM LEFTEYE ONE (06:30)
[2020-04-02 06:31] LABS: HCG SCREEN NEGATIVE
[2020-04-02 06:46] LABS: CARBAMAZEPINE < 0.5 ug/mL (4-12); PHENOBARBITAL < 2.1 ug/mL (15.0-40.0)
[2020-04-02 06:52] LABS: VALPROIC ACID < 3.0 ug/mL (50-100)
[2020-04-02 08:57] VITALS: BP 118/67
== END 2020-04-02 12:17 | disposition home or self-care (01) ==
LOC: ER 05:22
DX: G40.909 Epilepsy, unspecified, not intractable, without status epilepticus (principal); H57.89 Other specified disorders of eye and adnexa; I10 Essential (primary) hypertension
CPT/HCPCS: 36415; 80053; 80156; 80165; 80184; 80185; 84703; 85025; 93005; 96365; 96375; 99284; J1953; J2060